=== PATIENT | female | born 1945 | race Caucasian/White ===

== ENCOUNTER 2022-08-23 11:57 | Inpatient (IN) | payer MEDICARE ==
[2022-08-23] MEDS ORDERED: Ondansetron ODT 4 MG TAB PO PRN (12:20)
[2022-08-23] MEDS ORDERED: Ondansetron PF 4 MG/2 ML Vial IVP PRN (12:20)
[2022-08-23] MEDS ORDERED: Magnesium 2 GM/50 ML(in water) 2 GM in Premix Bag 1 BAG IVPB SCH (12:30)
[2022-08-23 12:38] VITALS: BMI 29.5
[2022-08-23] MEDS ORDERED: HumaLOG 300 UNITS/3 ML VIAL SC PRN (12:38)
[2022-08-23] MEDS ORDERED: Dextrose 5% in Water 1,000 ML IV PRN (12:38)
[2022-08-23] MEDS ORDERED: Dextrose 50% Abboject 50 ML SYRINGE SLOW IVP PRN (12:38)
[2022-08-23] MEDS: Ipratropium/Albuterol 3 ML NEB NEB SCH ×3 (13:04→23:15)
[2022-08-23] MEDS: Azithromycin 500 MG in Sodium Chloride 0.9% 250 ML 250 ML IVPB SCH (13:35)
[2022-08-23] MEDS: methylPREDNISolone Sod Succ 40 MG VIAL IVP SCH ×2 (13:40→21:18)
[2022-08-23] MEDS: HumaLOG 300 UNITS/3 ML VIAL SC PRN (16:28)
[2022-08-24] MEDS: Guaifenesin DM 100-10/5 ML UDCUP PO PRN ×2 (00:03→09:36)
[2022-08-24] MEDS: Ipratropium/Albuterol 3 ML NEB NEB SCH ×6 (02:16→23:25)
[2022-08-24 05:37] LABS: Hemoglobin 11.6 g/dL (12.0-15.5); Mean Corpuscular Hemoglobin 29.4 pg (27.0-33.0); Mean Corpuscular Volume 89.1 fl (81.6-98.3); Mean Platelet Volume 9.7 fl (7.4-10.4); Platelet Count 203 10x3/uL (150-450); RBC Distribution Width 13.5 % (11.5-14.5); Red Blood Cell (RBC) Count 3.94 10x6/uL (3.90-5.03); White Blood Cell (WBC) Count 18.1 10x3/uL (3.5-10.5)
[2022-08-24 05:52] LABS: Anion Gap 15 mmol/L (10-20); BUN (Urea Nitrogen) 18 mg/dL (9.8-20.1); Calc. Creatinine Clearance 60 mL/min (70-130); Calcium 9.9 mg/dL (7.8-10.44); Carbon Dioxide 23 mmol/L (23-31); Chloride 104 mmol/L (98-107); Estimated GFR 72; Glucose 184 mg/dL (83-110); Potassium 4.2 mmol/L (3.5-5.1); Sodium 138 mmol/L (136-145)
[2022-08-24 05:59] LABS: MDiff Complete? YES
[2022-08-24 06:04] LABS: Band 14 % (5-11); Lymphocytes 1 % (21-51); Monocytes 2 % (0-10); Neutrophil 83 % (42-75)
[2022-08-24 06:06] LABS: Platelet Morphology Comment Appears Adequate; RBC Morphology Normal; Toxic Granulation SLIGHT
[2022-08-24] MEDS: methylPREDNISolone Sod Succ 40 MG VIAL IVP SCH ×3 (06:23→22:17)
[2022-08-24] MEDS: HumaLOG 300 UNITS/3 ML VIAL SC PRN ×3 (06:52→17:13)
[2022-08-24] MEDS: cefTRIAXone\\ROCEPHIN 1 GM in Sodium Chloride 0.9% 100 ML IVPB SCH (08:34)
[2022-08-24] MEDS: Furosemide 20 MG TAB PO SCH (09:37)
[2022-08-24] MEDS: Pregabalin 50 MG CAP PO SCH ×2 (09:37→20:54)
[2022-08-24] MEDS: Doxepin HCl 25 MG CAP PO SCH ×2 (09:37→20:53)
[2022-08-24] MEDS: NIFEdipine XL 30 MG TAB PO SCH (09:37)
[2022-08-24] MEDS: Azithromycin 500 MG in Sodium Chloride 0.9% 250 ML 250 ML IVPB SCH (12:39)
[2022-08-24] MEDS: Atorvastatin Calcium 20 MG TAB PO SCH (20:53)
[2022-08-24] MEDS: Lisinopril 5 MG TAB PO SCH (20:54)
[2022-08-24] MEDS: Mometasone 100 MCG/Formoterol 5 MCG 120 PUFF INHALER INH SCH (21:00)
[2022-08-25] MEDS: Ipratropium/Albuterol 3 ML NEB NEB SCH ×6 (03:18→23:00)
[2022-08-25 05:06] LABS: Hemoglobin 11.3 g/dL (12.0-15.5); Mean Corpuscular HGB CONC 32.3 g/dL (32.0-36.0); Mean Corpuscular Hemoglobin 28.6 pg (27.0-33.0); Mean Corpuscular Volume 88.6 fl (81.6-98.3); Platelet Count 232 10x3/uL (150-450); RBC Distribution Width 13.6 % (11.5-14.5); Red Blood Cell (RBC) Count 3.95 10x6/uL (3.90-5.03); White Blood Cell (WBC) Count 18.4 10x3/uL (3.5-10.5)
[2022-08-25 05:06] LABS: Hemoglobin 11.4 g/dL (12.0-15.5); Mean Corpuscular HGB CONC 32.8 g/dL (32.0-36.0); Mean Corpuscular Hemoglobin 29.1 pg (27.0-33.0); Mean Corpuscular Volume 88.8 fl (81.6-98.3); Mean Platelet Volume 9.9 fl (7.4-10.4); Platelet Count 228 10x3/uL (150-450); RBC Distribution Width 13.7 % (11.5-14.5); Red Blood Cell (RBC) Count 3.92 10x6/uL (3.90-5.03); White Blood Cell (WBC) Count 18.4 10x3/uL (3.5-10.5)
[2022-08-25 05:12] LABS: MDiff Complete? YES
[2022-08-25 05:20] LABS: Anion Gap 13 mmol/L (10-20); BUN (Urea Nitrogen) 22 mg/dL (9.8-20.1); Calc. Creatinine Clearance 59 mL/min (70-130); Calcium 9.7 mg/dL (7.8-10.44); Carbon Dioxide 24 mmol/L (23-31); Chloride 103 mmol/L (98-107); Estimated GFR 70; Glucose 201 mg/dL (83-110); Potassium 4.4 mmol/L (3.5-5.1); Sodium 136 mmol/L (136-145)
[2022-08-25 05:35] LABS: Band 3 % (5-11); Lymphocytes 5 % (21-51); Monocytes 2 % (0-10); Neutrophil 90 % (42-75)
[2022-08-25 05:36] LABS: Platelet Morphology Comment Appears Adequate; RBC Morphology Normal
[2022-08-25] MEDS: methylPREDNISolone Sod Succ 40 MG VIAL IVP SCH ×2 (05:51→13:28)
[2022-08-25] MEDS: Levothyroxine Sodium 50 MCG TAB PO SCH (05:51)
[2022-08-25] MEDS: Mometasone 100 MCG/Formoterol 5 MCG 120 PUFF INHALER INH SCH ×2 (07:19→19:12)
[2022-08-25] MEDS: Pregabalin 50 MG CAP PO SCH ×2 (08:39→21:28)
[2022-08-25] MEDS: NIFEdipine XL 30 MG TAB PO SCH (08:42)
[2022-08-25] MEDS: Furosemide 20 MG TAB PO SCH (08:42)
[2022-08-25] MEDS: Doxepin HCl 25 MG CAP PO SCH ×2 (08:44→21:29)
[2022-08-25] MEDS: cefTRIAXone\\ROCEPHIN 1 GM in Sodium Chloride 0.9% 100 ML IVPB SCH (09:12)
[2022-08-25] MEDS: Guaifenesin DM 100-10/5 ML UDCUP PO PRN ×2 (09:21→18:05)
[2022-08-25] MEDS: Azithromycin 500 MG in Sodium Chloride 0.9% 250 ML 250 ML IVPB SCH (13:27)
[2022-08-25] MEDS: Atorvastatin Calcium 20 MG TAB PO SCH (21:29)
[2022-08-25] MEDS: Lisinopril 5 MG TAB PO SCH (21:29)
[2022-08-26] MEDS: Ipratropium/Albuterol 3 ML NEB NEB SCH ×3 (02:59→11:54)
[2022-08-26 04:29] LABS: #Monocytes 0.8 10x3/uL (0.0-1.1); #Neutrophils 16.1 10x3/uL (1.5-8.4); %Basophils 0.1 % (0.0-2.0); %Lymphocytes 8.6 % (18.0-47.0); %Monocytes 4.2 % (0.0-10.0); %Neutrophils 86.2 % (40.0-75.0); Hemoglobin 12.1 g/dL (12.0-15.5); Mean Corpuscular HGB CONC 33.3 g/dL (32.0-36.0); Mean Corpuscular Hemoglobin 29.3 pg (27.0-33.0); Mean Corpuscular Volume 87.9 fl (81.6-98.3); Mean Platelet Volume 9.5 fl (7.4-10.4); Platelet Count 225 10x3/uL (150-450); RBC Distribution Width 13.7 % (11.5-14.5); Red Blood Cell (RBC) Count 4.13 10x6/uL (3.90-5.03); White Blood Cell (WBC) Count 18.7 10x3/uL (3.5-10.5)
[2022-08-26 05:00] LABS: Anion Gap 16 mmol/L (10-20); BUN (Urea Nitrogen) 26 mg/dL (9.8-20.1); Calc. Creatinine Clearance 60 mL/min (70-130); Calcium 9.5 mg/dL (7.8-10.44); Carbon Dioxide 22 mmol/L (23-31); Chloride 103 mmol/L (98-107); Estimated GFR 72; Glucose 158 mg/dL (83-110); Magnesium 2.1 mg/dL (1.6-2.6); Potassium 3.9 mmol/L (3.5-5.1); Sodium 137 mmol/L (136-145)
[2022-08-26] MEDS: Levothyroxine Sodium 50 MCG TAB PO SCH (05:45)
[2022-08-26] MEDS: Guaifenesin DM 100-10/5 ML UDCUP PO PRN (07:17)
[2022-08-26] MEDS: Mometasone 100 MCG/Formoterol 5 MCG 120 PUFF INHALER INH SCH (07:35)
[2022-08-26] MEDS ORDERED: predniSONE 20 MG TAB PO SCH (08:00)
[2022-08-26] MEDS ORDERED: Azithromycin 500 MG VIAL ONE (09:05)
[2022-08-26] MEDS: cefTRIAXone\\ROCEPHIN 1 GM in Sodium Chloride 0.9% 100 ML IVPB SCH (09:09)
[2022-08-26] MEDS: Doxepin HCl 25 MG CAP PO SCH (09:19)
[2022-08-26] MEDS: NIFEdipine XL 30 MG TAB PO SCH (09:20)
[2022-08-26] MEDS: Pregabalin 50 MG CAP PO SCH (09:24)
[2022-08-26] MEDS: Furosemide 20 MG TAB PO SCH (09:26)
[2022-08-26 12:57] VITALS: TEMP 97.9
[2022-08-26 13:08] VITALS: BP 167/73
[2022-08-26 13:14] LABS: Hemoglobin A1c 6.1 % (4.0-6.0)
== END 2022-08-26 12:20 | disposition home or self-care (01) | DRG 189 ==
LOC: CSHTELE 11:57
PROVIDERS: ADMIT Internal Medicine; ATTEND Family Medicine
DX: J96.01 Acute respiratory failure with hypoxia (principal); J44.1 Chronic obstructive pulmonary disease with (acute) exacerbation; E11.9 Type 2 diabetes mellitus without complications; E78.5 Hyperlipidemia, unspecified; E03.9 Hypothyroidism, unspecified; K21.9 Gastro-esophageal reflux disease without esophagitis; Z88.6 Allergy status to analgesic agent; Z88.2 Allergy status to sulfonamides; Z90.49 Acquired absence of other specified parts of digestive tract; Z90.710 Acquired absence of both cervix and uterus; Z98.51 Tubal ligation status; D72.829 Elevated white blood cell count, unspecified
CPT/HCPCS: 36415; 36416; 80048; 83036; 83735; 84443; 85025; 87070; 87205; 94640; 94664; 94760; 94762; J0456; J0696; J1650; J2920; J3475; J3490; J7050; J7512; J7620